=== PATIENT | female | born 1975 | race Caucasian/White ===

== ENCOUNTER 2018-03-07 05:50 | Inpatient (IN) | payer OTHER ==
[2018-03-07] MEDS ORDERED: GENTAMICIN 160 MG in DEXTROSE 5% 100 ML IVPB (06:00)
[2018-03-07] MEDS ORDERED: CEFAZOLIN 2 GM/50 ML (PMX) 50 ML IVPB (06:00)
[2018-03-07] MEDS ORDERED: BUPIVACAINE 0.5%/EPI (SDV) 30 ML INJ (07:02)
[2018-03-07] MEDS ORDERED: BUPIVACAINE 0.25% (MPF) 30 ML INJ (07:03)
[2018-03-07] MEDS ORDERED: LIDOCAINE 1%/EPI 30 ML INJ (07:03)
[2018-03-07] MEDS ORDERED: PROPOFOL 40 ML (07:41)
[2018-03-07] MEDS ORDERED: ROCURONIUM 50 MG INJ ×5 (07:41→10:59)
[2018-03-07] MEDS ORDERED: CEFAZOLIN 1 GM INJ ×2 (07:41→10:54)
[2018-03-07] MEDS ORDERED: MIDAZOLAM 1 MG/ML 2 ML INJ ×2 (07:41)
[2018-03-07 08:50] LABS: IMMEDIATE SPIN CROSSMATCH 1 2
[2018-03-07] MEDS ORDERED: ONDANSETRON 4 MG INJ (09:20)
[2018-03-07] MEDS ORDERED: DEXAMETHASONE 4 MG/ML 5 ML INJ (09:21)
[2018-03-07] MEDS ORDERED: METOCLOPRAMIDE 10 MG INJ (09:21)
[2018-03-07] MEDS: BUPIVACAINE 0.25% (MPF) 30 ML INJ (09:31)
[2018-03-07] MEDS: GENTAMICIN 80 MG INJ ×2 (09:32→11:38)
[2018-03-07] MEDS: LIDOCAINE 1%/EPI 30 ML INJ (09:32)
[2018-03-07] MEDS: POLYMYXIN/BACITRACIN 1L IRRIG ×2 (09:32→11:38)
[2018-03-07] MEDS: MUPIROCIN 2% 22 GM OINT TOP (09:33)
[2018-03-07] MEDS ORDERED: morphine 2 MG INJ IV ×2 (10:30→15:00)
[2018-03-07] MEDS ORDERED: DIPHENHYDRAMINE 50 MG INJ IV (10:30)
[2018-03-07] MEDS ORDERED: OXYCODONE/ACETAMINOPHEN (5/325) TAB PO ×3 (10:30)
[2018-03-07] MEDS ORDERED: FENTAnyl 50 MCG/ML VIAL IV ×3 (10:30)
[2018-03-07] MEDS ORDERED: HYDROmorphONE 1 MG/5 ML IV SYRINGE IV ×2 (10:30)
[2018-03-07] MEDS ORDERED: METOCLOPRAMIDE 10 MG INJ IV (10:30)
[2018-03-07] MEDS ORDERED: hydrALAzine 20 MG INJ IV (10:30)
[2018-03-07] MEDS ORDERED: MEPERIDINE 25 MG INJ IV (10:30)
[2018-03-07] MEDS ORDERED: EPHEDrine SULFATE 50 MG/5 ML SYG IV (10:30)
[2018-03-07] MEDS ORDERED: LABETALOL HCL 20MG INJ IV (10:30)
[2018-03-07] MEDS ORDERED: ONDANSETRON 4 MG INJ IV ×2 (10:30→15:00)
[2018-03-07] MEDS ORDERED: KETOROLAC 30 MG INJ (12:55)
[2018-03-07] MEDS ORDERED: SUGAMMADEX SODIUM 200 MG/2 ML VIAL IV (13:24)
[2018-03-07] MEDS: HYDROmorphONE 1 MG/5 ML IV SYRINGE IV (14:20)
[2018-03-07] MEDS: ONDANSETRON 4 MG INJ IV (14:29)
[2018-03-07] MEDS: LACTATED RINGER'S 1,000 ML IV* (20:09)
[2018-03-07] MEDS: OXYCODONE/ACETAMINOPHEN (5/325) TAB PO (20:11)
[2018-03-08] MEDS: morphine 4 MG/ML VIAL IV ×6 (03:14→23:54)
[2018-03-08 04:57] LABS: ADD MAN DIFF? NO
[2018-03-08 04:58] LABS: WHITE BLOOD COUNT 13.2 10^3/ul (4.8-10.8)
[2018-03-08 04:58] LABS: BASOPHILS % 0.2 % (0.0-2.0); HEMATOCRIT 24.5 % (37.0-47.0); HEMOGLOBIN 7.2 g/dl (12.0-16.0); LYMPHOCYTES % 7.8 % (15.0-51.0); MEAN CORPUSCULAR HEMOGLOBIN 24.3 pg (29.0-33.0); MEAN CORPUSCULAR HGB CONC 29.4 g/dl (32.0-37.0); MEAN CORPUSCULAR VOLUME 82.8 fl (82.0-101.0); MEAN PLATELET VOLUME 9.6 fl (7.4-10.4); MONOCYTE # 0.9 10^3/ul (0.3-0.9); MONOCYTES % 7.1 % (0.0-11.0); NEUTROPHIL # 11.2 10^3/ul (1.6-7.5); NEUTROPHILS % 84.3 % (39.0-77.0); PLATELET COUNT 289 10^3/UL (140-415); RED BLOOD COUNT 2.96 10^6/ul (4.20-5.40); RED CELL DISTRIBUTION WIDTH 17.7 % (11.5-14.5)
[2018-03-08] MEDS: OXYCODONE/ACETAMINOPHEN (5/325) TAB PO ×4 (05:49→21:59)
[2018-03-08] MEDS: IBUPROFEN 400 MG TAB PO ×2 (12:48→17:52)
[2018-03-08 13:59] LABS: IRON 24 ug/dl (35-150)
[2018-03-08] MEDS: AMLODIPINE 5 MG TAB PO (14:00)
[2018-03-08 14:08] LABS: % IRON SATURATION 10 % SAT (22-52); TOTAL IRON BINDING CAPACITY 242 ug/dl (241-421)
[2018-03-08] MEDS: FERROUS SULFATE (EC) 325 MG TAB PO (15:25)
[2018-03-08] MEDS: FOLIC ACID 1 MG TAB PO (15:25)
[2018-03-09] MEDS: OXYCODONE/ACETAMINOPHEN (5/325) TAB PO ×2 (02:45→07:47)
[2018-03-09] MEDS: morphine 4 MG/ML VIAL IV ×3 (04:41→14:43)
[2018-03-09 05:08] LABS: ADD MAN DIFF? NO
[2018-03-09 05:10] LABS: WHITE BLOOD COUNT 11.4 10^3/ul (4.8-10.8)
[2018-03-09 05:10] LABS: ABNORMAL IP MESSAGE 1; BASOPHILS % 0.4 % (0.0-2.0); EOSINOPHILS # 0.2 10^3/ul (0.0-0.5); EOSINOPHILS % 1.4 % (0.0-7.0); HEMATOCRIT 24.4 % (37.0-47.0); LYMPHOCYTES # 1.3 10^3/ul (0.8-2.9); LYMPHOCYTES % 11.3 % (15.0-51.0); MEAN CORPUSCULAR HEMOGLOBIN 24.5 pg (29.0-33.0); MEAN CORPUSCULAR HGB CONC 28.7 g/dl (32.0-37.0); MEAN CORPUSCULAR VOLUME 85.3 fl (82.0-101.0); MEAN PLATELET VOLUME 9.5 fl (7.4-10.4); MONOCYTE # 0.7 10^3/ul (0.3-0.9); MONOCYTES % 6.1 % (0.0-11.0); NEUTROPHIL # 9.1 10^3/ul (1.6-7.5); NEUTROPHILS % 80.3 % (39.0-77.0); PLATELET COUNT 267 10^3/UL (140-415); RED BLOOD COUNT 2.86 10^6/ul (4.20-5.40)
[2018-03-09 05:20] LABS: POSITIVE DIFF @See below
[2018-03-09 05:32] LABS: ANION GAP 3 (5-13); BLOOD UREA NITROGEN 13 mg/dl (7-20); CALCIUM 9.6 mg/dl (8.4-10.2); CARBON DIOXIDE 30 mmol/L (21-31); CHLORIDE 107 mmol/L (97-110); CREATININE 0.89 mg/dl (0.44-1.00); Estimated GFR > 60 mL/min (>60); POTASSIUM 4.1 mmol/L (3.5-5.1); SODIUM 140 mmol/L (135-144)
[2018-03-09 05:38] LABS: GLUCOSE 109 mg/dl (70-220)
[2018-03-09] MEDS ORDERED: SOD FERRIC GLUC COMPLX 125 MG in SOD CHLORIDE 0.9% 100 ML IVPB (08:30)
[2018-03-09] MEDS: IBUPROFEN 400 MG TAB PO ×2 (09:13→13:15)
[2018-03-09] MEDS: FOLIC ACID 1 MG TAB PO (09:13)
[2018-03-09] MEDS: FERROUS SULFATE (EC) 325 MG TAB PO (09:13)
[2018-03-09] MEDS: AMLODIPINE 5 MG TAB PO (09:15)
[2018-03-09] MEDS: SOD FERRIC GLUC COMPLX 125 MG in SOD CHLORIDE 0.9% 100 ML IVPB (13:16)
== END 2018-03-09 16:00 | disposition home or self-care (01) | DRG 584 ==
LOC: REC 05:50 → MS1 15:13
PROC: 0HTV0ZZ Resection of Bilateral Breast, Open Approach (ICD-10-PCS; principal; 2018-03-07 07:30)
PROC: 0HHV0NZ Insertion of Tissue Expander into Bilateral Breast, Open Approach (ICD-10-PCS; 2018-03-07 07:30)
PROC: 30233N1 Transfusion of Nonautologous Red Blood Cells into Peripheral Vein, Percutaneous Approach (ICD-10-PCS; 2018-03-07 07:30)
DX: Z40.01 Encounter for prophylactic removal of breast (principal); Z68.44 Body mass index [BMI] 60.0-69.9, adult; Z15.01 Genetic susceptibility to malignant neoplasm of breast; I10 Essential (primary) hypertension; E66.01 Morbid (severe) obesity due to excess calories; D72.829 Elevated white blood cell count, unspecified; Z17.0 Estrogen receptor positive status [ER+]; D50.9 Iron deficiency anemia, unspecified
CPT/HCPCS: 36430; 80048; 83540; 85025; 86850; 86900; 86901; 86920; 87086; 88307; 88341; 88342